=== PATIENT | male | born 1955 | race Caucasian/White ===

== ENCOUNTER 2017-06-21 13:29 | Emergency (ER) | payer OTHER ==
[2017-06-21] MEDS ORDERED: ACETAMINOPHEN TAB 650MG DOSE (2X325MG) PO (14:30)
[2017-06-21] MEDS: traMADol 50 MG TAB PO (14:30)
== END 2017-06-21 16:31 | disposition home or self-care (01) ==
LOC: M ED 13:29
DX: S30.0XXA Contusion of lower back and pelvis, initial encounter (principal); S43.401A Unspecified sprain of right shoulder joint, initial encounter; W17.89XA Other fall from one level to another, initial encounter; Y92.89 Other specified places as the place of occurrence of the external cause
CPT/HCPCS: 72190

== ENCOUNTER → 2017-08-22 | Outpatient (CLI) | payer OTHER | LOC: M SMT 15:17 | DX: J67.0 Farmer's lung (principal) ==

== ENCOUNTER → 2017-08-22 | Outpatient (REF) | payer OTHER ==
[2017-08-22 17:24] LABS: HEMATOCRIT 45.2 % (42.0-52.0); HEMOGLOBIN 15.2 g/dl (13.5-17.5); MEAN CORPUSCULAR HEMOGLOBIN 30.5 pg (27.0-33.0); MEAN CORPUSCULAR HGB CONC 33.6 g/dl (32.0-36.5); MEAN CORPUSCULAR VOLUME 90.8 fl (80.0-96.0); PLATELET COUNT, AUTOMATED 293 10^3/uL (150-450); RED BLOOD COUNT 4.98 10^6/uL (4.30-6.10); RED CELL DISTRIBUTION WIDTH 12.5 % (11.5-14.5); WHITE BLOOD COUNT 7.4 10^3/uL (4.0-10.0)
[2017-08-22 17:26] LABS: ANION GAP 6 MEQ/L (8-16); BLOOD UREA NITROGEN 20 MG/DL (7-18); CALCIUM LEVEL 8.9 MG/DL (8.8-10.2); CARBON DIOXIDE LEVEL 27 MEQ/L (21-32); CHLORIDE LEVEL 108 MEQ/L (98-107); CREATININE FOR GFR 0.87 MG/DL (0.70-1.30); GLOMERULAR FILTRATION RATE > 60.0 (>49); GLUCOSE, FASTING 116 MG/DL (70-100); POTASSIUM SERUM 3.9 MEQ/L (3.5-5.1); SODIUM LEVEL 141 MEQ/L (136-145)
[2017-08-22 17:35] LABS: INR 1.02; PROTHROMBIN TIME 13.5 SECONDS (12.4-14.5)
== END ==
LOC: M SFHCPLAZ 14:49
DX: Z01.818 Encounter for other preprocedural examination (principal)

== ENCOUNTER → 2022-09-02 | Outpatient (CLI) | payer BC ==
[~2022-09-02] MED LIST: COMBAER6 INH; PAINTAB PO
== END ==
LOC: M CARPUL 14:03
PROVIDERS: ATTEND Internal Medicine Critical Care Medicine
DX: R06.00 Dyspnea, unspecified (principal)

== ENCOUNTER → 2023-03-18 | Outpatient (CLI) | payer BC | LOC: M SLEEP HO 12:49 | PROVIDERS: ATTEND Internal Medicine Critical Care Medicine | DX: G47.33 Obstructive sleep apnea (adult) (pediatric) (principal) ==

== ENCOUNTER → 2023-05-15 | Outpatient (CLI) | payer BC | LOC: M SLEEP 20:00 | PROVIDERS: ATTEND Internal Medicine Critical Care Medicine | DX: G47.33 Obstructive sleep apnea (adult) (pediatric) (principal) ==

== ENCOUNTER → 2024-06-20 | Outpatient (CLI) | payer BC | LOC: M RAD 06:50 | PROVIDERS: ATTEND Internal Medicine Critical Care Medicine | DX: R91.8 Other nonspecific abnormal finding of lung field (principal) ==